=== PATIENT | male | born 1930 | race Caucasian/White ===

== ENCOUNTER 2018-08-28 15:05 | Inpatient (IN) ==
[2018-08-28] MEDS ORDERED: CORDARONE IV ONE (15:42)
[2018-08-28] MEDS ORDERED: ZOFRAN IV ONE (15:43)
[2018-08-28] MEDS ORDERED: NS 1,000 ML IV ONE (15:43)
[2018-08-28] MEDS ORDERED: CORDARONE 360 MG/D5W 360 MG/200 ML IV.SOLN IV ONE (15:43)
[2018-08-28 15:56] LABS: BASO# 0.02 X1000 (0.0-0.2); BASO% 0.3 % (0.0-0.8); EOS# 0.04 X1000 (0.0-0.7); EOS% 0.6 % (0.0-10.0); HEMATOCRIT 42.5 % (42.0-52.0); HEMOGLOBIN 14.6 g/dL (14.0-18.0); LYMPH% 20.8 % (20.5-51.1); MCH 29.4 PG (27-31); MCHC 34.4 g/dL (33-37); MCV 85.5 FL (81-99); MONO# 0.68 X1000 (0.11-0.59); MONO% 9.4 % (1.7-9.3); MPV 9.5 FL (7.4-10.4); NEUT# 4.97 X1000 (1.4-6.5); NEUT% 68.9 % (42.2-75.2); PLT 169 X1000 (130-400); RBC 4.97 XMIL (4.7-6.1); RDW 13.8 % (11.5-14.5); WBC 7.21 X1000 (4.8-10.8)
[2018-08-28] MEDS ORDERED: CORDARONE 150 MG/D5W 150 MG/100 ML IV.SOLN ONE ×2 (16:08)
[2018-08-28 16:17] LABS: AGAP 13; ALB/GLOB RATIO 1.9; ALBUMIN 4.1 g/dL (3.5-5.0); ALKALINE PHOSPHATASE 67 U/L (32-122); BUN 19 mg/dL (8-22); CHLORIDE 100 mmol/L (98-107); CK PROFILE 63 U/L (24-204); COSMO 273; CREATININE 1.1 mg/dL (0.7-1.2); ESTIMATED GFR > 60; GLUCOSE 105 mg/dL (70-104); GOT 18 U/L (10-34); GPT 8 U/L (10-44); INR 1.04; POTASSIUM 4.8 mmol/L (3.5-5.1); PROTIME 14.4 Seconds (11.0-16.0); SODIUM 135 mmol/L (136-145); TCO2 22 mmol/L (25-35); TOTAL PROTEIN 6.3 g/dL (6.3-8.3)
[2018-08-28 16:18] LABS: PTT 28.9 Seconds (22.3-41.8)
[2018-08-28 16:31] LABS: T4 7.07 ug/dL (4.60-12.00); TSH 1.21 uIUmL (0.27-4.20)
--- NOTE | 2018-08-28 16:52 | Diag Imaging Result Doc PS360 ---
EXAM: CHEST-1 VIEW INDICATION: PALPITATIONS TECHNIQUE: One view COMPARISON: 09/18/2015 FINDINGS: The lungs are grossly clear. There is no discrete pleural fluid collection or pneumothorax. Cardiac silhouette is borderline to mildly prominent but stable. Central vasculature is unremarkable. IMPRESSION: Borderline to mildly prominent heart. No definite acute pathology. Electronically signed by Laron Vizcaino 08/28/2018 4:50 PM
--- NOTE | 2018-08-28 18:14 | PROVIDER DOCUMENTATION ---
This chart was entered by Alia Elam Scribe, acting as scribe for Junior De Los Santos MD. HPI-Cardiac General - General Chief Complaint: Palpitations Stated Complaint: palpitations Time Seen by Provider: 08/28/18 15:28 Source: patient, other (friend) Allergies/Adverse Reactions: Patient Allergies Allergy/AdvReac Type Severity Reaction Status Date / Time Penicillins Allergy HIVES Verified 08/28/18 15:50 TDAP Allergy Unknown Uncoded 08/28/18 15:50 Home Medications: Home Medication List Medication Instructions Recorded Confirmed Last Taken Type PRAVAstatin [Pravachol] 40 mg PO QHS #30 tablet NS 09/21/15 08/28/18 1 Day Ago Rx ~08/27/18 Acetaminophen/Diphenhydramine 1 each PO HS 08/28/18 08/28/18 1 Day Ago History [Tylenol Pm] ~08/27/18 - History of Present Illness-Cardiac Nature of Presenting Problem: 88 y/o male presents to the ED with complaint of palpitations. The patient states he was at a friend's house eating soup and then he went to the couch and put his feet up afterward and then he is here. The friend who is a nurse states the patient complained of racing heart, had BP 108/52, SOB, and was pale. Denied chest pain and diaphoresis. NKDA. The patient denies chest pain but does state his chest was a little heavy. Location: reports: other (palpitations) Onset/Duration: just prior to arrival Timing: still present Context/Activities at Onset: reports: light activity Palpitation Quality: fast/pounding heart beat History of arrythmia: reports: none Nitro Today/Relief: reports: no nitro taken today Aspirin Treatment Today: reports: no aspirin today Prior Chest Pain/Cardiac Workup: reports: no prior chest pain Associated Symptoms: reports: shortness of breath. denies: diaphoresis, fever/ chills, vomiting Similar Symptoms Previously?: No Recently Seen Here or By Another Healthcare Provider: No Review of Systems - Adult - REVIEW OF SYSTEMS - ADULT Constitutional: denies: chills, fever, weight gain, weight loss Eyes: reports: no symptoms reported Ears, Nose, Mouth & Throat: reports: no symptoms reported Cardiovascular: reports: palpitations. denies: chest pain, syncope Respiratory: reports: shortness of breath. denies: hemoptysis, wheezing Gastrointestinal: denies: diarrhea, nausea, vomiting Genitourinary: reports: no symptoms reported Musculoskeletal: reports: no symptoms reported Integumentary: reports: no symptoms reported Neurological: reports: no symptoms reported Psychiatric: reports: no symptoms reported Endocrine: reports: no symptoms reported Hematologic/Lymphatic: reports: no symptoms reported Allergic/Immunologic: reports: no symptoms reported All Other Systems: Reviewed and Negative Past History - Adult - PAST MEDICAL HISTORY-ADULT Review of Records: reports: Old Records Reviewed, Nursing Assessment Review, Medications Reviewed Major Childhood Illnesses: reports: denies history Cardiovascular: reports: denies history Respiratory: reports: denies history Gastrointestinal: reports: denies history Obstetrical/Gynecological: reports: denies history Genitourinary: reports: prostate cancer Musculoskeletal: reports: arthritis, neck/back injury, osteoporosis Neurological: reports: denies history Endocrine/Immune: reports: denies history Other Conditions: reports: denies history - PRIOR SURGERIES/PROCEDURES Surgical/Procedure History: reports: hernia repair, other - IMMUNIZATION STATUS Childhood Immunizations: See Nurse Assessment Flu Vaccine: See Nurse Assessment - FAMILY HISTORY Family History: reviewed, not pertinent - SOCIAL HISTORY Smoking: non-smoker Substance Use: none/never Alcohol Use Frequency: never Physical Exam-General - PHYSICAL EXAM-ADULT Initial Vital Signs Reviewed: Yes - CONSTITUTIONAL General Appearance: alert, no apparent distress - HEAD, EARS, NOSE, MOUTH & THROAT HENMT: normocephalic/atraumatic - NECK Neck: non-tender, full range of motion, supple - RESPIRATORY Respiratory: lungs clear, normal breath sounds. negative: crackles, rales, rhonchi, wheezing - CARDIOVASCULAR Cardiovascular: no edema, no gallop, tachycardia - SKIN Integumentary: normal color, warm/dry. negative: diaphoresis - NEUROLOGIC Neurologic: grossly normal - PSYCHIATRIC Psych/Mental Status: normal mood/affect, oriented x 3 Progress - PLAN OF CARE/RESULTS Progress/Plan/Lab Results: Vital Signs - 8 hr 08/28/18 15:42 08/28/18 16:35 08/28/18 16:43 Temperature 98 F Pulse Rate 123 H 109 H 64 Respiratory Rate 20 20 12 Blood Pressure 94/73 93/67 109/65 O2 Sat by Pulse Oximetry 99 95 96 08/28/18 16:53 08/28/18 17:54 Temperature Pulse Rate 64 64 Respiratory Rate 18 18 Blood Pressure 109/65 100/58 O2 Sat by Pulse Oximetry 100 94 L Laboratory Results - last 24 hr 08/28/18 08/28/18 08/28/18 15:47 15:47 15:47 WBC 7.21 RBC 4.97 Hgb 14.6 Hct 42.5 MCV 85.5 MCH 29.4 MCHC 34.4 RDW Std Deviation 13.8 Plt Count 169 MPV 9.5 Immature Gran % (Auto) 0.0 Neut % (Auto) 68.9 Lymph % (Auto) 20.8 Grand % (Auto) 9.4 H Eos % (Auto) 0.6 Baso % (Auto) 0.3 Immature Gran # (Auto) 0.00 Neut # (Auto) 4.97 Lymph # (Auto) 1.50 Grand # (Auto) 0.68 H Eos # (Auto) 0.04 Baso # (Auto) 0.02 PT INR PTT (Actin FS) Sodium 135 L Potassium 4.8 Chloride 100 Carbon Dioxide 22 L Anion Gap 13 BUN 19 Creatinine 1.1 Estimated GFR/1.73 m2 > 60 BUN/Creatinine Ratio 17 Glucose 105 H Calculated Osmolality 273 Calcium 10.0 Magnesium Total Bilirubin 0.60 AST 18 ALT 8 L Alkaline Phosphatase 67 Creatine Kinase 63 Troponin T Jze-V-Txwcnofionb Pept 228 Total Protein 6.3 Albumin 4.1 Globulin 2.2 Albumin/Globulin Ratio 1.9 TSH Thyroxine (T4) 08/28/18 08/28/18 08/28/18 15:47 15:47 15:47 WBC RBC Hgb Hct MCV MCH MCHC RDW Std Deviation Plt Count MPV Immature Gran % (Auto) Neut % (Auto) Lymph % (Auto) Grand % (Auto) Eos % (Auto) Baso % (Auto) Immature Gran # (Auto) Neut # (Auto) Lymph # (Auto) Grand # (Auto) Eos # (Auto) Baso # (Auto) PT 14.4 INR 1.04 PTT (Actin FS) 28.9 Sodium Potassium Chloride Carbon Dioxide Anion Gap BUN Creatinine Estimated GFR/1.73 m2 BUN/Creatinine Ratio Glucose Calculated Osmolality Calcium Magnesium 1.8 Total Bilirubin AST ALT Alkaline Phosphatase Creatine Kinase Troponin T < 0.010 Oax-P-Tpwihnldgle Pept Total Protein Albumin Globulin Albumin/Globulin Ratio TSH Thyroxine (T4) 08/28/18 15:47 WBC RBC Hgb Hct MCV MCH MCHC RDW Std Deviation Plt Count MPV Immature Gran % (Auto) Neut % (Auto) Lymph % (Auto) Grand % (Auto) Eos % (Auto) Baso % (Auto) Immature Gran # (Auto) Neut # (Auto) Lymph # (Auto) Grand # (Auto) Eos # (Auto) Baso # (Auto) PT INR PTT (Actin FS) Sodium Potassium Chloride Carbon Dioxide Anion Gap BUN Creatinine Estimated GFR/1.73 m2 BUN/Creatinine Ratio Glucose Calculated Osmolality Calcium Magnesium Total Bilirubin AST ALT Alkaline Phosphatase Creatine Kinase Troponin T Jaf-E-Fwfhvtxsddm Pept Total Protein Albumin Globulin Albumin/Globulin Ratio TSH 1.21 Thyroxine (T4) 7.07 Orders Category Date Time Status Cardiac Monitoring DIRECTED Care 08/28/18 15:41 Active Oxygen Therapy- ED Nursing DIRECTED Care 08/28/18 15:41 Active Saline Loc NOW Care 08/28/18 15:41 Active CHEST-1 VIEW [RAD] Stat Exams 08/28/18 15:42 Completed CBC WITH ELECTRONIC DIFF [HEME] Stat Lab 08/28/18 15:47 Completed CK PROFILE [SP CHEM] Stat Lab 08/28/18 15:47 Completed COMPREHENSIVE METABOLIC PANEL [CHEM] Stat Lab 08/28/18 15:47 Completed MAGNESIUM [CHEM] Stat Lab 08/28/18 15:47 Completed PRO B-NATRIURETIC PEPTIDE Stat Lab 08/28/18 15:47 Completed PROTIME WITH INR [COAG] Stat Lab 08/28/18 15:47 Completed PTT [COAG] Stat Lab 08/28/18 15:47 Completed T4 Stat Lab 08/28/18 15:47 Completed TROPONIN T Stat Lab 08/28/18 15:47 Completed TSH Stat Lab 08/28/18 15:47 Completed 0.9% Sodium Chloride Inj [Ns] 1,000 ml Med 08/28/18 15:43 Discontinued IV 999 mls/hr Amiodarone 150 mg/D5w [Cordarone 150 mg/D5w] Med 08/28/18 16:08 Discontinued 150 mg in 100 ml .ROUTE As Directed Amiodarone 150 mg/D5w [Cordarone 150 mg/D5w] Med 08/28/18 16:08 Discontinued 150 mg in 100 ml .ROUTE As Directed Amiodarone 360 mg/D5w [Cordarone 360 mg/D5w] Med 08/28/18 15:43 Active 360 mg in 200 ml IV ONCE Amiodarone [Cordarone] Med 08/28/18 15:42 Discontinued 300 mg IV NOW ONE Dextrose 5%-Water Inj [D5w] 289.2 ml Med 08/28/18 21:43 Active Amiodarone [Cordarone] 540 mg IV 16.667 mls/hr Ondansetron [Zofran] Med 08/28/18 15:43 Discontinued 4 mg IV NOW ONE CP/SOB/Palp >45 yrs of Age Stat Oth 08/28/18 15:40 Ordered EKG [EKG] Stat Ther 08/28/18 15:41 Ordered Result Diagrams: 08/28/18 15:47 08/28/18 15:47 - REASSESSMENT Reassessment #1 Time Reassessed: 16:45 Status: improving (following initial amiod bolus, pt converted to NSR w/ freq unifocal pVCs and became completely asymptomatic. I cont'd the gtts. labs are wnl, CXR unchanged.) Reassessment #2 Time Reassessed: 18:12 Status: unchanged (patient remains in NSR; disc'd w/ Dr. Back for Dr. Jain, who agreed to admit.) - EKG 1 Time of EKG reading by physician:: 01:55 EKG Read and Signed by:: Junior De Los Santos EKG Interpretation (*Must complete 3 of following elements*): Abnormal Rate: 130 Rhythm: accelerated junctional w/retrograde conduction [place]: left ST Wave: non-specific ST changes (and T wave abnormality consider lateral ischemia) Comments: anterior infarct age undetermined 2 Time of EKG reading by physician:: 17:02 EKG Read and Signed by:: Junior De Los Santos Rate: 64 Rhythm: sinus w/frequent premature ventricular complexes [place]: left Comments: anterior infarct age undetermined Departure - Departure Date of Disposition Decision: 08/28/18 Time of Disposition Decision: 18:13 DIAGNOSIS: Cardiac arrhythmia, Accelerated junctional rhythm Disposition: ADMITTED INPATIENT 09 Certified Medical Emergency: Emergent Condition: Serious Referrals and Follow-Ups: Smooth Jain Jr, MD [Primary Care Provider] - - Critical Care Note This patient required my direct & personal management of CC.: Yes Total Time (mins): 40 Critical Care Statement: This patient required my direct personal management to treat or rule out processes, the absence of which, could potentiallly result in sudden, clinically significant life or limb threatening deterioration. Attestation - Physician/ KG Attestation The physician spent face to face time with patient:: Yes Advanced Practice Provider documentation review:: Supervising physician onsite and consulted in the evaluation and care of this patient. The physician did have a face to face encounter with the patient. This chart was documented by the indicated scribe, (Alia Elam Scribe) and accurately reflects the services I performed and decisions made by me, Junior De Los Santos MD, as attested by the provider's signature.
[2018-08-28] MEDS ORDERED: TYLENOL PO SCH (21:00)
[2018-08-28] MEDS ORDERED: TYLENOL PO PRN (21:20)
--- NOTE | 2018-08-28 21:40 | HISTORY AND PHYSICAL ---
CHIEF COMPLAINT: [place] weak and dizzy, and nearly passed out. HISTORY OF PRESENT ILLNESS: The patient is an 88-year-old white male, followed by Dr. Smooth Jain, who was brought in by ambulance. Apparently, he was at his home eating some soup, when he began feeling faint, as if he were going to pass out. Had some dizziness, and felt a tightening in his midchest area. Paramedics were summoned, and he was brought in to the emergency room, and found to have an accelerated junctional rhythm by the ER physician at around 122 beats per minute. He promptly received amiodarone IV, and then was placed on a drip of amiodarone. He immediately converted back to sinus rhythm, with frequent PVCs. Symptoms have been alleviated with that treatment. He is asymptomatic now. He denies any history of chest pains. He does have a history of a stroke without residual about 3 years ago. MEDICATIONS PRIOR TO ADMISSION: Tylenol PM at bedtime, Pravachol 40 mg p.o. at bedtime, aspirin daily. ALLERGIES: Penicillin and Tdap. PAST MEDICAL HISTORY: 1. Hypercholesterolemia. 2. History of CVA about 3 years ago. Fortunately, without any residual. PAST SURGICAL HISTORY: TURP. FAMILY HISTORY: Noncontributory. SOCIAL HISTORY: Remote history of some smoking and minimal drinking very remotely. Of course, he is retired. He lives in [place]. He is . REVIEW OF SYSTEMS: Negative, except as above. PHYSICAL EXAMINATION: VITAL SIGNS: Temperature 98 degrees. Pulse on presentation 123. Respirations down at 20. Blood pressure 94/73. Oxygen saturation on room air 99%. On an amiodarone drip. Blood pressure is low normal, but heart rate is down now, and he is in sinus rhythm, with frequent PVCs, unifocal. Pulse was in the 60s. Oxygen saturation on room air 94-98%. Weight 164, height 5 feet 8 inches. GENERAL: Elderly white male, in no acute distress. SKIN: Warm and dry. No rashes. HEENT: NC/AT. PERRL. EOMI. Sclerae anicteric. OP with no redness. Tongue in the midline. NECK: No LA, TMG, JVD, bruits. CV: Regular rate and rhythm, with frequent PVCs. No distinct murmur. LUNGS: CTA. Distant breath sounds. BACK: NT. ABDOMEN: Soft, NT, ND. No mass. No HSM. GENITOURINARY/RECTAL: Deferred. EXTREMITIES: No calf tenderness, cords, or edema. NEUROLOGIC: Cranial nerves 2-12 are intact. No focal deficits. DIAGNOSTIC DATA: Arterial studies done of his lower extremities, notably in November 2017, showing severe calcifications of the wall of the peripheral arteries. Carotid Dopplers also done in November 2017, revealing mild atherosclerotic disease. Also, echocardiogram done in 2015, [id number] LVH, EF of 55 to 60 percent, trace AI, trace TR. MRI brain done in 2016 revealed acute infarct at the anterior right parietal lobe, and an old infarct at the right posterior parietal lobe. ASSESSMENT: 1. Presyncopal event, thought related to #2. 2. Accelerated junctional rhythm. Rule out worse dysrhythmia. 3. Cerebrovascular disease, with history of cerebrovascular accident about 3 years ago, without significant residual. 4. Hypercholesterolemia. PLAN: At this time, we will admit the patient to [facility], continue the amiodarone drip started by the ER physician. We will ask Cardiology to see the patient in consultation. Obtain serial cardiac enzymes, troponin levels, and continue his Pravachol. Place him on aspirin daily. Repeat EKG in the morning. cc: MD Smooth Thorpe Jr, MD
[2018-08-28] MEDS ORDERED: CORDARONE 540 MG in D5W 289.2 ML IV ONE (21:43)
[2018-08-28] MEDS: TYLENOL PO SCH (22:16)
[2018-08-28] MEDS: BENADRYL PO SCH (22:16)
[2018-08-28] MEDS: PRAVACHOL PO SCH (22:16)
[2018-08-28] MEDS: ASPIRIN PO SCH (22:16)
[2018-08-28] MEDS ORDERED: CORDARONE 150 MG/D5W 150 MG/100 ML IV.SOLN IV SCH (22:45)
[2018-08-29] MEDS ORDERED: CORDARONE 540 MG in D5W 289.2 ML IV ONE (04:34)
[2018-08-29] MEDS ORDERED: CORDARONE 360 MG/D5W 360 MG/200 ML IV.SOLN IV SCH (08:00)
--- NOTE | 2018-08-29 10:39 | PROGRESS NOTE ---
DATE: 08/29/2018 SUBJECTIVE: The patient says he is feeling better now. Initially he had apparently had chest pain and near syncope. According to the ER record, he has heart palpitations, shortness of breath, and was pale. When I asked him about it, he did not complain of heart palpitations so I do not know whether he is perceiving this differently at this time or not. Initially he had an accelerated junctional rhythm with retrograde conduction and nonspecific ST changes. Now, he has a heart rate in the 50s but has been on an amiodarone drip. He does not have any chest discomfort now. He is back into a sinus rhythm. OBJECTIVE: Vital signs: Blood pressure is 106/52, respirations 15, pulse 52, temperature 98 degrees Fahrenheit. HEENT: Normocephalic. EOMs intact. PERRLA. Throat clear. Lungs: Clear to auscultation and percussion without rhonchi, rales, or wheezes. Heart: Regular rate and rhythm without murmurs, gallops, or friction rubs. Abdomen: Soft with active bowel sounds. No organomegaly or tenderness. Neurological: Intact grossly. ASSESSMENT: 1. Cardiac arrhythmia with junctional rhythm, now converted. 2. Near syncope. Note that cardiac enzymes are negative. PLAN: Cardiology is seeing. Apparently going to stop the amiodarone drip. We will just see what other medications he might be put on and what other studies might be done. We will continue to support. cc: Smooth Jain Jr, MD
--- NOTE | 2018-08-29 10:47 | CARDIOLOGY CONSULTATION ---
DATE: 08/29/2018 CHIEF COMPLAINT: Weakness, near syncope, chest tightness, and palpitations. HISTORY: This is an 88-year-old male patient of Dr. Jain, who was having lunch with a friend, and as he was eating, he noted some mild chest tightness and mild pressure. He decided to stop eating, went and sat down on a couch, and then he felt very weak, near syncopal. His friend who is a registered nurse noted that he was tachycardic and then referred the patient to the EMS and brought to the ER. He was seen by Dr. De Los Santos in the emergency room department, and he stated that the patient was in some sort of a rapid tachycardia that he qualified as accelerated junctional with retrograde conduction. I suspect this is the automatic reading from the ECG machine. At any rate, they put the patient on amiodarone, and he converted to sinus rhythm. The patient at this time is still on the amiodarone drip. His EKG this morning actually shows some sort of bradyarrhythmia. His EKG post conversion that was done yesterday at 4:52 p.m. shows sinus rhythm with PVCs, frequent, like in trigeminy rhythm, no ischemic changes. The original EKG has been hidden from view. His cardiac enzymes have been checked a total of 3 times, and they are negative. His CPKs are 3 in total, and they are negative. His BUN and creatinine are normal. White cell count and hemoglobin are normal. Chest x-ray done yesterday reported as borderline to mildly prominent heart, no definite acute pathology. PAST HISTORY: Positive for a stroke that happened when he was visiting [place] about 5 or 6 years ago. That affected the left side of his body. He was admitted to the hospital on 09/18/2015. At that time, they did a CT scan of the head that showed a possible parietal stroke. Carotid ultrasound done in November 2017 shows mild atherosclerotic disease. He has had a prior nuclear stress test, September 2013, that showed no evidence of ischemia and a small-size fixed defect in the left ventricular apex, attenuation versus scar. He has had an echogram done in August 2015 that showed normal left ventricular ejection fraction and no significant valvular abnormality. Additionally, a proBNP level that was done yesterday was normal at 228 mcg/mL; normal is less than 450. TSH was also normal. SURGICAL HISTORY: Positive for some cervical spine disease. HOME MEDICATIONS: Pravastatin and he takes acetaminophen with diphenhydramine to sleep. ALLERGIES: He is allergic to penicillin and also to the tetanus vaccine. REVIEW OF SYSTEMS: Really noncontributory at this time. The patient has no difficulty getting around. He can walk 4 to 5 blocks without difficulty. He denies having chest pains or angina, palpitations, or syncope at home. No swelling. No claudication. No GI distress. No cough, fever, body aches, genitourinary issues, psychiatric illness, etc. No skin disorder. No cancer. No hematological issues. SOCIAL HISTORY: He is a retired analytical engineer. He is from [place] . He has no children. He is himself not a smoker. PHYSICAL EXAMINATION: Vital signs: Today blood pressure 106/52, temperature 98 degrees, pulse 52, respirations 15. General: He is awake, alert, oriented, in no distress. HEENT: Unremarkable. Chest: Clear to auscultation and percussion. Heart: Heart sounds regular and rhythmic. No gallop or murmur. Abdomen: Nontender. Extremities: Show good pulses. No peripheral edema. Neurological: Follows commands. Moves 4 extremities. IMPRESSION: 1. Patient who developed tachycardia with near syncope. This could have been atrial fibrillation with rapid response. I doubt that we are dealing with ventricular tachycardia. 2. History of previous stroke. 3. Abnormal EKG with frequent premature ventricular contractions (PVCs). RECOMMENDATION: At this time, we will do a 2D echocardiogram, and we will stop the amiodarone. I would really like to see the original ECG to elaborate on it because I am afraid that they are going by what the automatic computer reading stated at the time of admission. Further advice will be forthcoming. cc: MD Smooth Matthew Jr, MD
[2018-08-29] MEDS: ASPIRIN PO SCH (20:22)
[2018-08-29] MEDS: PRAVACHOL PO SCH (20:22)
[2018-08-29] MEDS: TYLENOL PO SCH (20:22)
[2018-08-29] MEDS: BENADRYL PO SCH (20:22)
--- NOTE | 2018-08-30 06:50 | ECHO REPORT ---
ORDER DATE: 08/29/2018 INDICATIONS: An 88-year-old male. A patient with arrhythmia. M-MODE MEASUREMENTS: Left ventricle end diastole: 4.6 cm. Left ventricle end systole: 3.6 cm. Posterior wall: 1.2 cm. Interventricular septum: 1.2 cm. Left atrium: 4.1 cm. Aortic root: 3.7 cm. SUMMARY OF 2-DIMENSIONAL IMAGIN. The left ventricular function is normal. Ejection fraction is 60%. No wall motion abnormalities noted. Optison was injected to opacify the chamber to get better views of the endocardium. 2. The aortic valve has 3 cusps. They open normally. Color flow mapping indicates very mild degree of regurgitation. 3. The mitral valve shows question of prolapse of the posterior leaflet of mild degree. There is a moderate to moderately severe degree of mitral regurgitation with the jet directed towards the posterolateral aspect of the left atrium. 4. Pulse wave Doppler of mitral inflow shows reversal of the E/A ratio, ratio is 0.6. 6. Tissue Doppler of septal and lateral mitral annulus averages 7 cm. 7. Pulmonary venous flow is normal. 8. There is no diastolic dysfunction. 9. Pulmonary appears to be grossly normal. 10.Tricuspid valve also appears to be grossly normal. Color flow mapping indicates mild degree of regurgitation. 11.Pulmonary systolic pressure is estimated at 31 mmHg. 12.There is no pericardial effusion, mass and no thrombus. Clinical correlation recommended. cc: MD Smooth Matthew Jr, MD
--- NOTE | 2018-08-30 07:18 | EKG Report ---
Test Performed on : 08/30/2018 06:56:14 AM Test Reason : arrhythmia Blood Pressure : / mmHG Vent. Rate : 070 BPM Atrial Rate : 102 BPM P-R Int : 000 ms QRS Dur : 112 ms QT Int : 420 ms P-R-T Axes : 000 -27 107 degrees QTc Int : 453 ms Sinus tachycardia. 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 with occasional premature ventricular complex es. Possible Anterior infarct (cited on or before 06-JUL-2007) Abnormal ECG When compared with ECG of 29-AUG-2018 05:54, (Unconfirmed) Sinus rhythm. has replaced Ectopic atrial rhythm. Questionable change in initial forces of Septal leads Unconfirmed Result
--- NOTE | 2018-08-30 07:21 | EKG Report ---
Test Performed on : 08/29/2018 05:54:39 AM Test Reason : CP Blood Pressure : / mmHG Vent. Rate : 055 BPM Atrial Rate : 055 BPM P-R Int : 110 ms QRS Dur : 112 ms QT Int : 508 ms P-R-T Axes : -46 -51 079 degrees QTc Int : 485 ms Unusual P axis, possible ectopic atrial bradycardia. with occasional premature ventricular complexes. Left axis deviation Anteroseptal infarct (cited on or before 06-JUL-2007) Abnormal ECG When compared with ECG of 28-AUG-2018 16:52, (Unconfirmed) Ectopic atrial rhythm. has replaced Sinus rhythm. Non-specific change in ST segment in Inferior leads T wave inversion now evident in Inferior leads Unconfirmed Result
--- NOTE | 2018-08-30 07:44 | EKG Report ---
Test Performed on : 08/28/2018 4:52:30 PM Test Reason : PALPITATIONS Blood Pressure : / mmHG Vent. Rate : 064 BPM Atrial Rate : 064 BPM P-R Int : 160 ms QRS Dur : 108 ms QT Int : 424 ms P-R-T Axes : 018 -40 068 degrees QTc Int : 437 ms Sinus rhythm. with frequent premature ventricular complexes. Left axis deviation Anterior infarct (cited on or before 06-JUL-2007) Abnormal ECG When compared with ECG of 28-AUG-2018 15:05, (Unconfirmed) Sinus rhythm. has replaced Junctional rhythm. Vent. rate has decreased BY 66 BPM Unconfirmed Result
--- NOTE | 2018-08-30 07:44 | EKG Report ---
Test Performed on : 08/28/2018 3:05:53 PM Test Reason : ED. NO EKG ORDER FOR MUSE Blood Pressure : / mmHG Vent. Rate : 130 BPM Atrial Rate : 136 BPM P-R Int : 000 ms QRS Dur : 118 ms QT Int : 322 ms P-R-T Axes : 000 -34 121 degrees QTc Int : 473 ms Accelerated Junctional rhythm. with retrograde conduction. Left axis deviation Anterior infarct (cited on or before 06-JUL-2007) ST & T wave abnormality, consider lateral ischemia Abnormal ECG When compared with ECG of 06-SEP-2007 09:59, Significant changes have occurred Unconfirmed Result
[2018-08-30] MEDS ORDERED: TOPROL XL PO SCH (09:00)
--- NOTE | 2018-08-30 09:09 | PROGRESS NOTE ---
DATE: 08/30/2018 SUBJECTIVE: The patient says he is feeling better. He has not had any more chest pains. He has had no heart palpitations. Echocardiogram was essentially normal. Cardiology is still evaluating. PA profiles were negative. Patient has been placed on metoprolol-XL 25 mg daily. OBJECTIVE: Vital signs: Blood pressure is 127/84, respirations 23 pulse 77, temperature 97.6 degrees Fahrenheit. Oxygen saturation is 100% on room air. HEENT: Normocephalic. EOMs intact. PERRLA. Throat clear. Lungs: Clear to auscultation and percussion without rhonchi, rales, or wheezes. Heart: Regular rate and rhythm without murmurs, gallops, friction rubs. Abdomen: Soft. Active bowel sounds. No organomegaly or tenderness. Neurological: Intact grossly. DIAGNOSTIC DATA: EKG done this morning shows sinus tachycardia with second-degree AV block. Mobitz 1. Occasional premature ventricular complexes. Possible anterior infarct. It appears to be old. ASSESSMENT: 1. Cardiac arrhythmia. 2. Near syncope. PLAN: Cardiology is still evaluating possible old PA. cc: Smooth Jain Jr, MD
--- NOTE | 2018-08-30 10:13 | CARDIOLOGY PROGRESS NOTE ---
DATE: 08/30/2018 CHIEF COMPLAINT: Dizzy, palpitations, near syncope. SUBJECTIVE: The patient is feeling better. Actually, he is already dressed up and stating that he is going home. He has no complaints. His telemetry shows that he is in sinus rhythm with PVCs. OBJECTIVE: Vital Signs: Temperature 97.6, pulse 77, respirations 23, blood pressure 127/84. General: He is awake, alert and oriented in no distress. HEENT: Unremarkable. Chest: Clear to auscultation and percussion. Heart: Heart sounds are regular and rhythmic with occasional PVCs. No definite murmur is noted. Abdomen: Soft, nontender. No masses. No hepatomegaly. Extremities: Show good pulses. No peripheral edema. Neurologic: Follows commands. Moves all extremities. LABORATORY DATA: Troponin levels have been checked a total of 3 times and negative. Echocardiogram from yesterday shows ejection fraction of 60% with mild degree of aortic regurgitation and moderate to moderately severe degree of mitral regurgitation. No diastolic dysfunction. Pulmonary pressure 31 mmHg. IMPRESSION: 1. A patient who presented with tachycardia and weakness. The review of his initial EKG is consistent with atrial fibrillation, rapid response.The ER Physician just repeated the diagnosis given by the [employer] and called it "accelerated junctional rhythm" which is a non sense. 2. Prior history of stroke. 3. History of moderate to moderately severe degree of mitral regurgitation. 4. Ventricular arrhythmia in the form of PVCs. RECOMMENDATIONS: At this time, I would suggest to put him on low dose beta arturo, metoprolol succinate 25 mg daily, and Xarelto 20 mg daily. His renal function is normal so I believe he may tolerate that well. His body mass index is 25. His actual weight is 164 pounds. I believe Xarelto would be reasonable for him. The fact that it is a once a day medication may increase compliance. I would be more than happy to see him at the office at the discretion of Dr. Jain, however at this point in time, I have no further recommendations. The patient may be discharged at Dr. Jain' discretion. cc: MD Smooth Matthew Jr, MD MTDD
[2018-08-30 15:24] VITALS: BP 127/73
[2018-08-30] MEDS ORDERED: XARELTO PO SCH (17:00)
--- NOTE | 2018-08-31 17:57 | DISCHARGE SUMMARY ---
ADMISSION DATE: 08/28/2018 DISCHARGE DATE: 08/30/2018 FINAL DIAGNOSES: 1. Cardiac arrhythmia with probable atrial fibrillation with rapid ventricular response now resolved. 2. Near syncope. 3. Chest pain. SECONDARY DIAGNOSES: 1. Arthritis. 2. Cervical disk disease. 3. Status post cerebrovascular accident. HISTORY OF PRESENT ILLNESS: The patient presented to the emergency room with weakness and some chest pain. His story seemed to change a little bit in the hospital from what he told the ER physician and what he told me but apparently there was some tightness in his chest. He was given amiodarone and the rhythm was considered an accelerated junctional rhythm. Cardiology later looked at this and thought it was more consistent with atrial fibrillation and rapid ventricular response. He responded well to the amiodarone. It was finally stopped. It was recommended to place him on metoprolol-XL 25 mg daily, which we did. It was also recommended to put him on Xarelto 20 mg daily. These prescriptions will be called in from my office for the patient. The patient stayed in a normal sinus rhythm after his conversion with amiodarone and has had no problems. He was eager to go home. PHYSICAL EXAMINATION: General: He is a well-developed, well-nourished, white male in no apparent distress. Vital signs: Stable. Pulse rate was in the 50s to 60s. The highest in the 80s. It was a normal sinus rhythm. HEENT: Normocephalic. EOMs intact. PERRLA. Throat clear. Lungs: Clear to auscultation and percussion without rhonchi, rales, or wheezes. Heart: Regular rate and rhythm without murmurs, gallops, friction rubs. Abdomen: Soft. Active bowel sounds. No organomegaly or tenderness. Neurological: Cranial nerves 2-12 intact grossly. Sensory and motor intact. Reflexes 1+ all. LABORATORY: Essentially normal. His troponins and CKs were negative for [place].. He had no more chest pain. PLAN: We will discharge him on the metoprolol and Xarelto as above and I will see back in my office within a week. cc: Smooth Jain Jr, MD
== END 2018-08-30 16:25 | disposition home or self-care (01) | DRG 310 ==
LOC: SUPCPDRO → ED 15:05 → 3S 18:39
PROVIDERS: ADMIT Emergency Medicine; ATTEND Emergency Medicine
CPT/HCPCS: 71010; 71045; 80053; 82550; 83735; 83880; 84436; 84443; 84484; 85025; 85610; 85730; 93005; 93010; 93306; 96365; 96366; 96375; 99285; 99291; A9270; C8929; J0282; J2405; J7030; J7060; Q9957